=== PATIENT | female | born 1990 | race Caucasian/White ===

== ENCOUNTER 2018-12-18 18:40 | Emergency (ER) | payer SELFPAY | END 2018-12-18 23:04 | disposition home or self-care (01) | LOC: JER 18:40 ==

== ENCOUNTER 2018-12-20 13:21 | Emergency (ER) | payer SELFPAY ==
--- NOTE | 2018-12-20 13:23 | PDOC ---
Rapid Medical Evaluation Chief Complaint: BHCG Time Seen by Provider: 12/20/18 13:21 Medical Evaluation: Allergies Allergy/AdvReac Type Severity Reaction Status Date / Time No Known Allergies Allergy Verified 12/18/18 18:45 12/20/18 13:22 I have performed a brief in-person evaluation of this patient. The patient presents with a chief complaint of: repeat bHCG testing Pertinent physical exam findings: u/s 11w ortiz in lower uterus I have ordered the following: bHCG The patient will proceed to the ED for further evaluation. Discharge Disposition - Diagnosis Threatened affecting intrauterine - Referrals - Patient Instructions - Post Discharge Activity
[2018-12-20 13:24] VITALS: BP 109/67; PULSE 90; TEMP 98.6; BMI 29.5
--- NOTE | 2018-12-20 13:39 | PDOC ---
History of Present Illness - General Chief Complaint: [facility] [place] Stated Complaint: LAB WORK Time Seen by Provider: 12/20/18 13:21 History Source: Patient - History of Present Illness Initial Comments: 12/20/18 14:13 Chief complaint: Repeat visit related to threatened miscarriage Patient 28-year-old female with history of asthma and lupus who was seen in the ER 2 days ago and had vaginal bleeding, 12 weeks on ultrasound who returned to have a repeat beta hCG. Patient states that after her visit she had heavy bleeding, which has since stopped since yesterday. No other complaints. Patient is a GENERAL/CONSTITUTIONAL: No fever, weakness. dizziness HEAD, EYES, EARS, NOSE AND THROAT: No change in vision. No ear pain or discharge. No sore throat. CARDIOVASCULAR: No chest pain RESPIRATORY: No shortness of breath or cough GASTROINTESTINAL: No pain, nausea, vomiting, diarrhea or constipation GENITOURINARY: No dysuria, + vaginal bleeding MUSCULOSKELETAL: No neck or back pain SKIN: No rash NEUROLOGIC: No headache, vertigo, loss of consciousness, or loss of sensation. GENERAL: The patient is awake, alert, and fully oriented, in no acute distress. HEAD: Normal with no signs of trauma. EYES: Pupils equal, round and reactive to light, sclera anicteric, conjunctiva clear. ENT: pharynx: no erythema, no exudate, uvula midline NECK: supple CHEST: clear, nontender, rr ABD: soft, nontender BACK: no tenderness or signs of injury EXTREMITIES: Normal range of motion, no edema. NEUROLOGICAL: Normal speech, normal gait. SKIN: Warm, Dry Past History - Past Medical History Allergies/Adverse Reactions: Allergies Allergy/AdvReac Type Severity Reaction Status Date / Time No Known Allergies Allergy Verified 12/20/18 13:24 Home Medications: Ambulatory Orders Doxycycline Hyclate [Vibramycin] 100 mg PO BID #14 capsule 12/20/18 COPD: No - Immunization History Immunization Up to Date: Yes - Suicide/Smoking/Psychosocial Hx Smoking History: Never smoked Have you smoked in the past 12 months: No Information on smoking cessation initiated: No Hx Alcohol Use: No Drug/Substance Use Hx: No *Physical Exam - Vital Signs Last Vital Signs Temp Pulse Resp BP Pulse Ox 98.6 F 90 19 109/67 100 12/20/18 13:21 12/20/18 13:21 12/20/18 13:21 12/20/18 13:21 12/20/18 13:21 ED Treatment Course - RADIOLOGY Radiology Studies Ordered: Category Date Time Status TRANSVAGINAL US PREG [US] Stat Ultrasound 12/20/18 13:38 Ordered Medical Decision Making - Medical Decision Making 12/20/18 14:15 Patient is a 28-year-old female who was evaluated 2 days ago for threatened miscarriage, 12 weeks who has had further bleeding which has stopped since yesterday. Patient appears well, vitals are stable. Patient will get repeat hCG and ultrasound to evaluate status of patient had type and screen done 2 days ago which showed Rh+ 12/20/18 14:17 A+, quant 2 days ago 95692.6 12/20/18 16:[address] Taylor, to receive Cytotec 800 g vaginally and put on Vibramycin 100 mg twice a day. He wants patient to follow-up tomorrow either in the office or at [facility]. 12/20/18 16:47 Chin given Cytotec in ER, prescription sent for Vibramycin. Patient fully understands that she needs to be seen tomorrow *DC/Admit/Observation/Transfer Diagnosis at time of Disposition: Miscarriage - Discharge Dispostion Disposition: HOME Condition at time of disposition: Stable Decision to Admit order: No - Prescriptions Prescriptions: Doxycycline Hyclate [Vibramycin] 100 mg PO BID #14 capsule - Referrals Referrals: Jason Taylor MD [Staff Physician] - - Patient Instructions Printed Discharge Instructions: Miscarriage Additional Instructions: You need to take the Vibramycin, 100 mg every 12 hours for 7 days, this is to prevent infection. The medicine given to you today will help contract your uterus to get back to normal size. It is very important for you to follow-up tomorrow, you can follow-up with the [facility]EL[facility]'s office or you can opt to go to [facility] as discussed here regarding your insurance issue. He should walk into [facility] and explained to them that the [facility] sent to their to be reevaluated to make sure that the miscarriage is progressing along the way it should. If for some reason they will not see you, return to the ER. Return to the ER if dizziness, fever, severe abdominal pain, severe bleeding or other concerns. - Post Discharge Activity
[2018-12-20] MEDS ORDERED: MISOPROSTOL 200 MCG TABLET PV ONE (16:02)
== END 2018-12-20 16:49 | disposition home or self-care (01) ==
LOC: JERFT 13:21
DX: O26.891 Other specified pregnancy related conditions, first trimester (principal); O20.0 Threatened abortion; Z3A.12 12 weeks gestation of pregnancy
CPT/HCPCS: 36415; 76817-TC; 84702; 99281-25